=== PATIENT | female | born 2000 | race Caucasian/White ===

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

== ENCOUNTER 2020-07-19 22:24 | Emergency (ER) | payer OTHER ==
--- NOTE | 2020-07-19 23:08 | ED ---
Female Urogenital HPI - General Chief complaint: Vaginal Bleeding Stated complaint: 9 weeks preg, Vaginal bleeding Time Seen by Provider: 07/19/20 22:43 Source: patient Mode of arrival: ambulatory Limitations: no limitations - History of Present Illness Initial comments: This patient is a 19-year-old woman who presents with complaint of suprapubic cramping and small amount of vaginal bleeding. She states that it had come on less than one hour ago. She states she came directly here. The patient states she has not had to change a pad yet. The patient states that she was seen in a clinic and had an ultrasound 1 week ago that did show intrauterine . The patient denies other complaints. No change in urination or bowel movements. No vomiting. MD Complaint: vaginal bleeding -: minutes(s) Radiation: suprapubic Severity: mild Quality: cramping Consistency: intermittent Improves with: none Worsens with: none Patient : Yes Number of weeks : 9 Associated Symptoms: denies other symptoms - Related Data Sexually active: Yes : 1 Para: 0 Previous Rx's Medication Instructions Recorded Cephalexin [Keflex] 500 mg PO Q6HR 7 Days #28 cap 07/18/19 EPINEPHrine (Auto Inject) [Epipen] 0.3 mg IM ONCE PRN #2 pen 07/18/19 predniSONE 50 mg PO DAILY #3 tab 07/18/19 Allergies Allergy/AdvReac Type Severity Reaction Status Date / Time sulfamethoxazole Allergy Rash/Hives Verified 07/19/20 22:28 [From Bactrim] trimethoprim [From Bactrim] Allergy Rash/Hives Verified 07/19/20 22:28 Review of Systems ROS Statement: Those systems with pertinent positive or pertinent negative responses have been documented in the HPI. ROS Other: All systems not noted in ROS Statement are negative. Constitutional: Denies: fever, chills Respiratory: Denies: cough, dyspnea Cardiovascular: Denies: chest pain, palpitations Gastrointestinal: Reports: as per HPI, abdominal pain. Denies: nausea, vomiting, diarrhea Genitourinary: Denies: dysuria, hematuria Musculoskeletal: Denies: back pain Skin: Denies: rash Neurological: Denies: headache, weakness Hematological/Lymphatic: Denies: easy bleeding Past Medical History Past Medical History: No Reported History History of Any Multi-Drug Resistant Organisms: MRSA Date of last positivie culture/infection: 2019 MDRO Source:: leg Past Surgical History: No Surgical Hx Reported Past Psychological History: No Psychological Hx Reported Smoking Status: Vaper Past Alcohol Use History: None Reported Past Drug Use History: Marijuana General Exam Limitations: no limitations General appearance: alert, in no apparent distress Head exam: Present: atraumatic, normocephalic Eye exam: Present: normal appearance. Absent: scleral icterus, conjunctival injection Respiratory exam: Present: normal lung sounds bilaterally. Absent: respiratory distress, wheezes, rales, rhonchi, stridor Cardiovascular Exam: Present: regular rate, normal rhythm, normal heart sounds. Absent: systolic murmur, diastolic murmur, rubs, gallop GI/Abdominal exam: Present: soft, normal bowel sounds. Absent: distended, tenderness, guarding, rebound, rigid, mass, pulsatile mass, hernia Extremities exam: Present: normal inspection, normal capillary refill. Absent: pedal edema, calf tenderness Back exam: Present: normal inspection. Absent: CVA tenderness (R), CVA tenderness (L) Neurological exam: Present: alert Skin exam: Present: warm, dry, intact, normal color. Absent: rash Course Vital Signs 07/19/20 07/20/20 22:26 02:01 Temperature 98.1 F 98.4 F Pulse Rate 67 79 Respiratory 16 19 Rate Blood Pressure 131/83 136/74 O2 Sat by Pulse 100 98 Oximetry Medical Decision Making - Medical Decision Making Patient is 19-year-old woman here for first trimester vaginal bleeding. Discussed the results with the patient, including ultrasound is consistent with intrauterine demise. Discussed appropriate further care and follow-up, return parameters, as well as possibility of requiring D&C in the future. All questions answered. - Lab Data Result diagrams: 07/19/20 22:48 Lab Results 07/19/20 07/19/20 07/19/20 Range/Units 22:48 22:48 22:49 WBC 7.9 (4.0-11.0) k/uL RBC 4.38 (3.80-5.40) m/uL Hgb 14.2 (11.4-16.0) gm/dL Hct 39.5 (34.0-46.0) % MCV 90.3 (80.0-100.0) fL MCH 32.4 (25.0-35.0) pg MCHC 35.8 (31.0-37.0) g/dL RDW 11.5 (11.5-15.5) % Plt Count 192 (150-450) k/uL MPV 7.4 Neutrophils % 62 % Lymphocytes % 28 % Monocytes % 5 % Eosinophils % 4 % Basophils % 1 % Neutrophils # 4.9 (1.3-7.7) k/uL Lymphocytes # 2.2 (1.0-4.8) k/uL Monocytes # 0.4 (0-1.0) k/uL Eosinophils # 0.3 (0-0.7) k/uL Basophils # 0.1 (0-0.2) k/uL HCG, Quant 88827.9 mIU/mL Urine Color Yellow Urine Appearance Clear (Clear) Urine pH 6.0 (5.0-8.0) Ur Specific [place] 1.022 (1.001-1.035) Urine Protein Negative (Negative) Urine Glucose (UA) Negative (Negative) Urine Ketones Negative (Negative) Urine Blood Moderate H (Negative) Urine Nitrite Negative (Negative) Urine Bilirubin Negative (Negative) Urine Urobilinogen <2.0 (<2.0) mg/dL Ur Leukocyte Esterase Large H (Negative) Urine RBC 1 (0-5) /hpf Urine WBC 12 H (0-5) /hpf Ur Squamous Epith Cells 8 H (0-4) /hpf Urine Bacteria Rare H (None) /hpf Urine Mucus Rare H (None) /hpf Blood Type Blood Type Recheck Bld Type Recheck Status 07/19/20 Range/Units 23:20 WBC (4.0-11.0) k/uL RBC (3.80-5.40) m/uL Hgb (11.4-16.0) gm/dL Hct (34.0-46.0) % MCV (80.0-100.0) fL MCH (25.0-35.0) pg MCHC (31.0-37.0) g/dL RDW (11.5-15.5) % Plt Count (150-450) k/uL MPV Neutrophils % % Lymphocytes % % Monocytes % % Eosinophils % % Basophils % % Neutrophils # (1.3-7.7) k/uL Lymphocytes # (1.0-4.8) k/uL Monocytes # (0-1.0) k/uL Eosinophils # (0-0.7) k/uL Basophils # (0-0.2) k/uL HCG, Quant mIU/mL Urine Color Urine Appearance (Clear) Urine pH (5.0-8.0) Ur Specific [place] (1.001-1.035) Urine Protein (Negative) Urine Glucose (UA) (Negative) Urine Ketones (Negative) Urine Blood (Negative) Urine Nitrite (Negative) Urine Bilirubin (Negative) Urine Urobilinogen (<2.0) mg/dL Ur Leukocyte Esterase (Negative) Urine RBC (0-5) /hpf Urine WBC (0-5) /hpf Ur Squamous Epith Cells (0-4) /hpf Urine Bacteria (None) /hpf Urine Mucus (None) /hpf Blood Type A Positive Blood Type Recheck No Previous Record Bld Type Recheck Status [facility] ONLY Disposition Clinical Impression: Threatened Disposition: HOME SELF-CARE Condition: Good Instructions (If sedation given, give patient instructions): Threatened Miscarriage (ED) Is patient prescribed a controlled substance at d/c from ED?: No Referrals: None,Stated [Primary Care Provider] - 1-2 days Rosalinda Cates MD [STAFF PHYSICIAN] - 1-2 days
[2020-07-19 23:25] LABS: Basophils # (A) 0.1 k/uL (0-0.2); Basophils % (A) 1 %; Eosinophils # (A) 0.3 k/uL (0-0.7); Eosinophils % (A) 4 %; HCT 39.5 % (34.0-46.0); HGB 14.2 gm/dL (11.4-16.0); Lymphocytes # (A) 2.2 k/uL (1.0-4.8); Lymphocytes % (A) 28 %; MCH 32.4 pg (25.0-35.0); MCHC 35.8 g/dL (31.0-37.0); MCV 90.3 fL (80.0-100.0); Mean Platelet Volume 7.4; Monocytes # (A) 0.4 k/uL (0-1.0); Monocytes % (A) 5 %; Neutrophils # (A) 4.9 k/uL (1.3-7.7); Neutrophils % (A) 62 %; Platelet Count 192 k/uL (150-450); RBC 4.38 m/uL (3.80-5.40); RDW 11.5 % (11.5-15.5); WBC 7.9 k/uL (4.0-11.0)
[2020-07-20 00:03] LABS: Appearance,Urine Clear (Clear); Bacteria,Urine Rare /hpf; Bilirubin,Urine Negative (Negative); Blood,Urine Moderate (Negative); Color,Urine Yellow; Glucose,Urine (UA) Negative (Negative); Ketones,Urine Negative (Negative); Leukocyte Esterase,Urine Large (Negative); Mucus,Urine Rare /hpf; Nitrite,Urine Negative (Negative); Protein,Urine Negative (Negative); RBC,Urine 1 /hpf (0-5); Specific Gravity,Urine 1.022 (1.001-1.035); Squamous Epithelial Cell,Urine 8 /hpf (0-4); Urobilinogen,Urine <2.0 mg/dL (<2.0); WBC,Urine 12 /hpf (0-5)
--- NOTE | 2020-07-20 01:35 | US ---
EXAM: US First Trimester , Transabdominal CLINICAL HISTORY: with pain. Rule out ectopic. TECHNIQUE: Real-time transabdominal obstetrical ultrasound of the maternal pelvis and a first trimester with image documentation. COMPARISON: No relevant prior studies available. FINDINGS: Gestation: Intrauterine gestational sac. An embryo is identified. The crown-rump length is 1.54 cm, corresponding to 8 weeks 0 days. No heart motion is detected. There is evidence of a subchorionic hemorrhage measuring 12 x 19 x 10 mm. Uterus/cervix: Unremarkable. No myometrial mass. The cervix appears closed. Ovaries: Both ovaries are identified. There was a 2.1 cm cyst in the left ovary. Free fluid: No free fluid. No adnexal mass. IMPRESSION: Intrauterine gestation with demise. <MYCVCSECTION> Communications: 07/20/20 01:44 Call Doctor Regarding demise, called Dr. Thayer on 07/20 01:44 (-05:00)
[2020-07-20 02:02] VITALS: BP 136/74; PULSE 79; RESP 19; TEMP 98.4
== END 2020-07-20 02:01 | disposition home or self-care (01) ==
LOC: EC 22:24
DX: O20.0 Threatened abortion (principal); F17.290 Nicotine dependence, other tobacco product, uncomplicated; Z86.14 Personal history of Methicillin resistant Staphylococcus aureus infection; Z88.1 Allergy status to other antibiotic agents; Z88.2 Allergy status to sulfonamides; Z3A.00 Weeks of gestation of pregnancy not specified
CPT/HCPCS: 36415; 76801; 81001; 84702; 85025; 86900; 86901; 99284

== ENCOUNTER 2020-07-24 01:41 | Emergency (ER) | payer OTHER ==
[2020-07-24 01:48] VITALS: TEMP 98
[2020-07-24] MEDS ORDERED: MORPHINE SULFATE 4 MG/ML SYRINGE IVP STA (02:02)
[2020-07-24] MEDS ORDERED: SODIUM CHLORIDE 0.9% 1,000 ML IV ONE (02:02)
[2020-07-24 02:13] LABS: Basophils % (A) 0 %; Eosinophils # (A) 0.4 k/uL (0-0.7); Eosinophils % (A) 4 %; HCT 39.3 % (34.0-46.0); HGB 13.7 gm/dL (11.4-16.0); Lymphocytes # (A) 1.4 k/uL (1.0-4.8); Lymphocytes % (A) 13 %; MCH 31.9 pg (25.0-35.0); MCHC 34.8 g/dL (31.0-37.0); MCV 91.6 fL (80.0-100.0); Mean Platelet Volume 7.5; Monocytes # (A) 0.4 k/uL (0-1.0); Monocytes % (A) 4 %; Neutrophils % (A) 78 %; Platelet Count 184 k/uL (150-450); RBC 4.29 m/uL (3.80-5.40); RDW 11.6 % (11.5-15.5); WBC 10.3 k/uL (4.0-11.0)
[2020-07-24 02:30] LABS: INR 0.9 (<1.2); Prothrombin Time 9.5 sec (9.0-12.0)
[2020-07-24 02:40] LABS: ALT 33 U/L (4-34); AST 34 U/L (14-36); African American GFR (CKD) >90 (>60 ml/min/1.73 sqM); Albumin 4.1 g/dL (3.5-5.0); Alkaline Phosphatase 43 U/L (38-126); Anion Gap 5 mmol/L; Blood Urea Nitrogen 11 mg/dL (7-17); Calcium 9.2 mg/dL (8.4-10.2); Carbon Dioxide 27 mmol/L (22-30); Chloride 107 mmol/L (98-107); Glucose 128 mg/dL (74-99); Non-African American GFR(CKD) >90 (>60 ml/min/1.73 sqM); Partial Thromboplastin Time 21.5 sec (22.0-30.0); Potassium 3.9 mmol/L (3.5-5.1); Sodium 139 mmol/L (137-145); Total Bilirubin 0.3 mg/dL (0.2-1.3); Total Protein 6.9 g/dL (6.3-8.2)
[2020-07-24 02:56] LABS: HCG,Quantitative Serum 9312.8 mIU/mL
--- NOTE | 2020-07-24 03:56 | US ---
EXAM: US First Trimester , Transabdominal CLINICAL HISTORY: retained poc TECHNIQUE: Real-time transabdominal obstetrical ultrasound of the maternal pelvis and a first trimester with image documentation. COMPARISON: 07/20/20 FINDINGS: Gestation: An intrauterine is not identified. Uterus/cervix: Normal avascular endometrium measuring up to 6 mm in diameter. No myometrial mass. Ovaries: 2.7 cm left ovarian cyst. No mass. Free fluid: No free fluid. IMPRESSION: 1. No sonographic evidence of retained products of conception. 2. 2.7 cm left ovarian cyst.
[2020-07-24 04:20] VITALS: BP 107/64; PULSE 86; RESP 18
--- NOTE | 2020-07-24 04:40 | ED ---
Female Urogenital HPI - General Chief complaint: Vaginal Bleeding Stated complaint: Vaginal bleeding, poss miscarriage Source: patient Mode of arrival: wheelchair Limitations: no limitations - History of Present Illness Initial comments: Patient is a 19-year-old female who presents to the emergency department with reported miscarriage. The patient was seen on the for similar complaint. States that she is approximately 9 weeks . She followed up at the [facility] last week and had a normal ultrasound with an intrauterine that demonstrated heart tones. She then began having some bleeding. On the she presented to our emergency department and had an ultrasound performed which demonstrated an intrauterine however there was no heart tones. Patient was instructed to follow up with her OB. Patient reports that her bleeding became significantly worse today. She laid with the heating pad all day. She did was taking Motrin. States that when she attempted to go to bed the pain became intense, bringing her into the emergency department. She admits to bright red blood with clots. No fevers or chills. Denies any additional vaginal discharge. No changes in her bowel or bladder habits. No other alleviating, precipitating modifying factors Last Menstrual Period: 05/14/20 - Related Data Previous Rx's Medication Instructions Recorded Cephalexin [Keflex] 500 mg PO Q6HR 7 Days #28 cap 07/18/19 EPINEPHrine (Auto Inject) [Epipen] 0.3 mg IM ONCE PRN #2 pen 07/18/19 predniSONE 50 mg PO DAILY #3 tab 07/18/19 Allergies Allergy/AdvReac Type Severity Reaction Status Date / Time sulfamethoxazole Allergy Rash/Hives Verified 07/24/20 01:48 [From Bactrim] trimethoprim [From Bactrim] Allergy Rash/Hives Verified 07/24/20 01:48 Review of Systems ROS Statement: Those systems with pertinent positive or pertinent negative responses have been documented in the HPI. ROS Other: All systems not noted in ROS Statement are negative. Past Medical History Past Medical History: No Reported History History of Any Multi-Drug Resistant Organisms: MRSA Date of last positivie culture/infection: 2019 MDRO Source:: leg Past Surgical History: No Surgical Hx Reported Past Psychological History: No Psychological Hx Reported Smoking Status: Vaper Past Alcohol Use History: None Reported Past Drug Use History: Marijuana General Exam Limitations: no limitations Course Vital Signs 07/24/20 07/24/20 07/24/20 01:46 02:00 02:12 Temperature 98 F Pulse Rate 74 74 71 Respiratory 16 16 14 Rate Blood Pressure 119/73 114/72 114/72 O2 Sat by Pulse 100 100 100 Oximetry 07/24/20 04:15 Temperature Pulse Rate 86 Respiratory 18 Rate Blood Pressure 107/64 O2 Sat by Pulse 97 Oximetry Medical Decision Making - Medical Decision Making Upon arrival patient was placed into room 26. A thorough history and physical exam was performed. Peripheral IV is established. Patient was given pain medications. Laboratory studies conducted. Ultrasound was performed which demonstrates no signs of intrauterine urgency. I did perform a pelvic exam which does demonstrate placental tissue and small fetus and cervical canal. I do remove the tissue and suction approximately 50 mL of blood from the vaginal vault. There is no accumulation of blood. I discussed results with the patient. I discussed the case with Dr. Pace who agreed to see the patient in office to ensure that her beta Quant's return to 0. Patient is informed that she needs to call make an appointment with him in the morning. The patient does report that her bleeding has slowed. She should return to the emergency room for any new or worsening symptoms. Patient was in agreement with this. Take Tylenol Motrin for pain control. Patient was discharged home in stable condition - Lab Data Result diagrams: 07/24/20 02:06 07/24/20 02:06 Lab Results 07/24/20 07/24/20 07/24/20 Range/Units 02:06 02:06 02:06 WBC 10.3 (4.0-11.0) k/uL RBC 4.29 (3.80-5.40) m/uL Hgb 13.7 (11.4-16.0) gm/dL Hct 39.3 (34.0-46.0) % MCV 91.6 (80.0-100.0) fL MCH 31.9 (25.0-35.0) pg MCHC 34.8 (31.0-37.0) g/dL RDW 11.6 (11.5-15.5) % Plt Count 184 (150-450) k/uL MPV 7.5 Neutrophils % 78 % Lymphocytes % 13 % Monocytes % 4 % Eosinophils % 4 % Basophils % 0 % Neutrophils # 8.0 H (1.3-7.7) k/uL Lymphocytes # 1.4 (1.0-4.8) k/uL Monocytes # 0.4 (0-1.0) k/uL Eosinophils # 0.4 (0-0.7) k/uL Basophils # 0.0 (0-0.2) k/uL PT 9.5 (9.0-12.0) sec INR 0.9 (<1.2) APTT 21.5 L (22.0-30.0) sec Sodium 139 (137-145) mmol/L Potassium 3.9 (3.5-5.1) mmol/L Chloride 107 (98-107) mmol/L Carbon Dioxide 27 (22-30) mmol/L Anion Gap 5 mmol/L BUN 11 (7-17) mg/dL Creatinine 0.64 (0.52-1.04) mg/dL Est GFR (CKD-EPI)AfAm >90 (>60 ml/min/1.73 sqM) Est GFR (CKD-EPI)NonAf >90 (>60 ml/min/1.73 sqM) Glucose 128 H (74-99) mg/dL Calcium 9.2 (8.4-10.2) mg/dL Total Bilirubin 0.3 (0.2-1.3) mg/dL AST 34 (14-36) U/L ALT 33 (4-34) U/L Alkaline Phosphatase 43 (38-126) U/L Total Protein 6.9 (6.3-8.2) g/dL Albumin 4.1 (3.5-5.0) g/dL HCG, Quant 9312.8 mIU/mL Disposition Clinical Impression: Miscarriage Disposition: HOME SELF-CARE Condition: Stable Instructions (If sedation given, give patient instructions): Miscarriage (ED) Additional Instructions: Please follow-up with Dr. Lawrence. Your beta hormone must be followed til it goes down to zero. Take Motrin and Tylenol for pain control. Return to the emergency room for any new or worsening symptoms Is patient prescribed a controlled substance at d/c from ED?: No Referrals: None,Stated [Primary Care Provider] - 1-2 days Terry Lawrence MD [STAFF PHYSICIAN] - 1-2 days Time of Disposition: 04:38
== END 2020-07-24 04:50 | disposition home or self-care (01) ==
LOC: EC 01:41
DX: O03.9 Complete or unspecified spontaneous abortion without complication (principal); F17.290 Nicotine dependence, other tobacco product, uncomplicated; Z88.2 Allergy status to sulfonamides; Z88.1 Allergy status to other antibiotic agents; Z86.14 Personal history of Methicillin resistant Staphylococcus aureus infection
CPT/HCPCS: 36415; 80053; 85025; 85610; 85730; 84702; 76801; 99284; 96374; 96361; J2270

== ENCOUNTER 2024-04-27 08:39 | Emergency (ER) | payer OTHER ==
[2024-04-27 08:47] VITALS: RESP 18
[2024-04-27] MEDS: PROPARACAINE 0.5% OPHTH DROPS 15 ML BTL RIGHT EYE STA (08:57)
--- NOTE | 2024-04-27 09:04 | ED ---
Eye Problem HPI - General Chief complaint: Eye Problems Stated complaint: foreign fluid in eye Time Seen by Provider: 04/27/24 08:49 Source: patient, RN notes reviewed Mode of arrival: ambulatory Limitations: no limitations - History of Present Illness Initial comments: 23-year-old female presents emergency department with chief complaint of right eye irritation. She states that she gets some detergent in her right eye. States this happened approximately over an hour ago. Patient states is very sensitive, irritated. Patient attempted to flush out at home. - Related Data Previous Rx's Medication Instructions Recorded Cephalexin [Keflex] 500 mg PO Q6HR 7 Days #28 cap 07/18/19 EPINEPHrine (Auto Inject) [Epipen] 0.3 mg IM ONCE PRN #2 pen 07/18/19 predniSONE 50 mg PO DAILY #3 tab 07/18/19 Allergies Allergy/AdvReac Type Severity Reaction Status Date / Time sulfamethoxazole Allergy Rash/Hives Verified 04/27/24 08:47 [From Bactrim] trimethoprim [From Bactrim] Allergy Rash/Hives Verified 04/27/24 08:47 Review of Systems ROS Statement: Those systems with pertinent positive or pertinent negative responses have been documented in the HPI. ROS Other: All systems not noted in ROS Statement are negative. Past Medical History Past Medical History: No Reported History History of Any Multi-Drug Resistant Organisms: MRSA Date of last positivie culture/infection: 2018 MDRO Source:: leg Past Surgical History: No Surgical Hx Reported Past Psychological History: No Psychological Hx Reported Smoking Status: Vaper Past Alcohol Use History: None Reported Past Drug Use History: Marijuana General Exam Limitations: no limitations General appearance: alert, in no apparent distress Head exam: Present: atraumatic, normocephalic, normal inspection Eye exam: Present: PERRL, EOMI, conjunctival injection, other (Complete pain relief with proparacaine). Absent: normal appearance, scleral icterus, periorbital swelling ENT exam: Present: normal exam, mucous membranes moist Neck exam: Present: normal inspection. Absent: tenderness, meningismus, lymphadenopathy Respiratory exam: Present: normal lung sounds bilaterally. Absent: respiratory distress, wheezes, rales, rhonchi, stridor Cardiovascular Exam: Present: regular rate, normal rhythm, normal heart sounds. Absent: systolic murmur, diastolic murmur, rubs, gallop, clicks Course Vital Signs 04/27/24 08:43 Temperature 97.8 F Pulse Rate 85 Respiratory 18 Rate Blood Pressure 130/86 O2 Sat by Pulse 99 Oximetry Procedures - Forgein Body Removal Eye Site: Right Location in eye(s): diffuse chemical irritation Anesthetic Used: Proparacaine Forgein Body Removal Technique: Young Lens Medical Decision Making - Medical Decision Making Was pt. sent in by a medical professional or institution (RAISA Lentz, AGRICULTURAL EQUIPMENT OPERATOR, urgent care, hospital, or residential...) When possible be specific @ -No Did you speak to anyone other than the patient for history (EMS, parent, family, police, friend...)? What history was obtained from this source @ -No Did you review nursing and triage notes (agree or disagree)? Why? @ -I reviewed and agree with nursing and triage notes Were old charts reviewed (outside hosp., previous admission, EMS record, old EKG, old radiological studies, urgent care reports/EKG's, residential records)? Report findings @ -No old charts were reviewed Differential Diagnosis (chest pain, altered mental status, abdominal pain women, abdominal pain men, vaginal bleeding, weakness, fever, dyspnea, syncope, headac he, dizziness, GI bleed, back pain, seizure, CVA, palpatations, mental health, musculoskeletal)? @ -Chemical irritation, chemical burn, conjunctivitis EKG interpreted by me (3pts min.). @ -None X-rays interpreted by me (1pt min.). @ -None done CT interpreted by me (1pt min.). @ -None done U/S interpreted by me (1pt. min.). @ -None done What testing was considered but not performed or refused? (CT, X-rays, U/S, labs)? Why? @ -None What meds were considered but not given or refused? Why? @ -None Did you discuss the management of the patient with other professionals (professionals i.e. RAISA Lentz, AGRICULTURAL EQUIPMENT OPERATOR, lab, RT, psych nurse, elementary school social worker, real estate lawyer, teacher, air defense artillery officer, rn case management)? Give summary @ -No Was smoking cessation discussed for >3mins.? @ -No Was critical care preformed (if so, how long)? @ -No Were there social determinants of health that impacted care today? How? (Homelessness, low income, unemployed, alcoholism, drug addiction, transportation, low edu. Level, literacy, decrease access to med. care, prison, rehab)? @ -No Was there de-escalation of care discussed even if they declined (Discuss DNR or withdrawal of care, Hospice)? DNR status @ -No What co-morbidities impacted this encounter? (DM, HTN, Smoking, COPD, CAD, Cancer, CVA, ARF, Chemo, Hep., AIDS, mental health diagnosis, sleep apnea, morbid obesity)? @ -None Was patient admitted / discharged? Hospital course, mention meds given and route, prescriptions, significant lab abnormalities, going to OR and other pertinent info. @ -Discharge patient had Young lens placed with 2 L of fluid irrigated patient had relief with proparacaine drops, patient was given Tobrex and advised to use artificial tears Undiagnosed new problem with uncertain prognosis? @ -No Drug Therapy requiring intensive monitoring for toxicity (Heparin, Nitro, Insulin, Cardizem)? @ -No Were any procedures done? @ -No Diagnosis/symptom? @ -Chemical irritation right eye Acute, or Chronic, or Acute on Chronic? @ -Acute Uncomplicated (without systemic symptoms) or Complicated (systemic symptoms)? @ -Uncomplicated Side effects of treatment? @ -No Exacerbation, Progression, or Severe Exacerbation? @ -No Poses a threat to life or bodily function? How? (Chest pain, [place], [place], pneumonia, PE, COPD, DKA, ARF, appy, cholecystitis, CVA, Diverticulitis, Homicidal, Suicidal, threat to staff... and all critical care pts) @ -No Disposition Clinical Impression: Chemical exposure of eye Disposition: HOME SELF-CARE Condition: Stable Instructions (If sedation given, give patient instructions): Chemical Eye Hansen (ED) Additional Instructions: Please return to the Emergency Department if symptoms worsen or any other concerns. Is patient prescribed a controlled substance at d/c from ED?: No Referrals: None,Stated [Primary Care Provider] - 1-2 days Time of Disposition: 09:47
[2024-04-27] MEDS: TOBRAMYCIN 0.3% OPHTH DROPS 5 ML BTL RIGHT EYE STA (09:29)
[2024-04-27 09:55] VITALS: BP 121/78; PULSE 81; TEMP 98
== END 2024-04-27 09:55 | disposition home or self-care (01) ==
LOC: EC 08:39
CPT/HCPCS: 99283

== ENCOUNTER → 2024-12-27 | Outpatient (CLI) | payer OTHER ==
[2024-12-27 11:43] LABS: ALT 20 U/L (4-34); AST 24 U/L (14-36); African American GFR (CKD) >90 (>60 ml/min/1.73 sqM); Albumin 4.2 g/dL (3.5-5.0); Albumin/Globulin Ratio 1.7; Alkaline Phosphatase 45 U/L (38-126); Anion Gap 7 mmol/L; Blood Urea Nitrogen 12 mg/dL (7-17); Calcium 9.7 mg/dL (8.4-10.2); Carbon Dioxide 29 mmol/L (22-30); Chloride 103 mmol/L (98-107); Globulin 2.5 g/dL; Glucose 91 mg/dL (74-99); Non-African American GFR(CKD) >90 (>60 ml/min/1.73 sqM); Potassium 4.2 mmol/L (3.5-5.1); Sodium 139 mmol/L (137-145); T4, Free (Free Thyroxine) 1.06 ng/dL (0.78-2.19); Total Bilirubin 0.8 mg/dL (0.2-1.3); Total Protein 6.7 g/dL (6.3-8.2)
[2024-12-27 13:57] LABS: Glucose 2 Hour 90 mg/dL
[2024-12-27 15:40] LABS: Basophils # (A) 0.06 X 10*3/uL (0.00-0.10); Basophils % (A) 1.1 %; Eosinophils # (A) 0.21 X 10*3/uL (0.04-0.35); HCT 42.2 % (37.2-46.3); HGB 14.5 g/dL (12.0-15.0); Lymphocytes # (A) 1.16 X 10*3/uL (0.90-5.00); Lymphocytes % (A) 22.2 %; MCH 31.4 pg (27.0-32.0); MCHC 34.4 g/dL (32.0-37.0); MCV 91.3 FL (80.0-97.0); Mean Platelet Volume 10.4 FL (9.5-12.2); Monocytes # (A) 0.41 X 10*3/uL (0.20-1.00); Monocytes % (A) 7.8 %; NRBC Per 100 WBC 0 X 10*3/uL (0.00-0.01); Neutrophils # (A) 3.38 X 10*3/uL (1.80-7.70); Neutrophils % (A) 64.7 %; Platelet Count 245 X 10*3/uL (140-440); RBC 4.62 X 10*6/uL (4.10-5.20); RDW 11.6 % (11.5-14.5); WBC 5.23 X 10*3/uL (4.50-10.00)
[2024-12-27 15:49] LABS: BUN/Creat Ratio 16.43 Ratio (12.00-20.00); Iron 192 UG/DL (50-170)
== END | disposition home or self-care (01) ==
LOC: LABWHC1 10:32
PROVIDERS: ATTEND Family Medicine
DX: R55 Syncope and collapse (principal)
CPT/HCPCS: 36415; 80053; 82951; 83540; 83735; 84439; 84443; 85025